=== PATIENT | female | born 1995 | race Caucasian/White ===

== ENCOUNTER 2018-08-25 10:24 | Emergency (ER) | payer OTHER ==
[~2018-08-25] VITALS: Ht 167.6 cm; Wt 59.1 kg
[2018-08-25 11:09] LABS: BASO % 0 % (0-3); EOS % 0 % (0-3); HEMATOCRIT 38.3 % (36.0-47.0); HEMOGLOBIN 13.1 g/dL (12.0-15.5); LYMPH # 1.7 x10^3/uL (1.0-4.8); LYMPH % 22 % (24-48); MEAN CORPUSCULAR HEMOGLOBIN 30 pg (25-35); MEAN CORPUSCULAR HGB CONC 34 g/dL (31-37); MEAN CORPUSCULAR VOLUME 89 fL (79-100); MONO # 0.4 x10^3/uL (0.0-1.1); MONO % 5 % (0-9); NEUT # 5.7 x10^3uL (1.8-7.7); NEUT % 73 % (31-73); PLATELET COUNT 217 x10^3/uL (140-400); RED CELL DISTRIBUTION WIDTH 12.9 % (11.5-14.5); WHITE BLOOD COUNT 7.9 x10^3/uL (4.0-11.0)
[2018-08-25 11:27] VITALS: BP 131/83
--- NOTE | 2018-08-25 12:44 | PHYS DOC ---
Past History Past Medical History: No Pertinent History Past Surgical History: Smoking: Non-smoker Alcohol Use: None Drug Use: None Adult General Chief Complaint Chief Complaint: VAGINAL BLEEDING HPI HPI Patient is a 23 year old female who presents with complaining of vaginal bleeding during . Patient is A1 at 14 weeks of gestation with LMP of May 15, 2018 with complaining of small amount of vaginal bleeding after intercourse this morning abdominal pain, nausea and vomiting, fever and chills, urinary symptom. Patient denies history of vaginal bleeding during her . Patient moved from [place] to this area and has appointment with new COLLECTION SYSTEMS ADMINISTRATOR on September 09 care. Patient had ultrasound in [place] several weeks ago with intrauterine gestational sac. She does not know about her blood type. Review of Systems Review of Systems Constitutional: Denies fever or chills [] Eyes: Denies change in visual acuity, redness, or eye pain [] HENT: Denies nasal congestion or sore throat [] Respiratory: Denies cough or shortness of breath [] Cardiovascular: No additional information not addressed in HPI [] GI: Denies abdominal pain, nausea, vomiting, bloody stools or diarrhea [] : Denies dysuria or hematuria [] Musculoskeletal: Denies back pain or joint pain [] Integument: Denies rash or skin lesions [] Neurologic: Denies headache, focal weakness or sensory changes [] Endocrine: Denies polyuria or polydipsia [] All other systems were reviewed and found to be within normal limits, except as documented in this note. Allergies Allergies Allergies Coded Allergies Type Severity Reaction Last Updated Verified No Known Drug Allergies 08/25/18 No Physical Exam Physical Exam Constitutional: Well developed, well nourished, no acute distress, non-toxic appearance. [] HENT: Normocephalic, atraumatic. [] Eyes: PERRLA, EOMI, conjunctiva normal, no discharge. [] Neck: Normal range of motion, no tenderness, supple, no stridor. [] Cardiovascular:Heart rate regular rhythm, no murmur [] Lungs & Thorax: Bilateral breath sounds clear to auscultation [] Abdomen: Bowel sounds normal, soft, no tenderness, no masses, no pulsatile masses. 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 [] Back: No tenderness, no CVA tenderness. [] Extremities: No tenderness, no cyanosis, no clubbing, ROM intact, no edema. [] Neurologic: Alert and oriented X 3, normal motor function, normal sensory function, no focal deficits noted. [] Psychologic: Affect normal, judgement normal, mood normal. [] Current Patient Data Vital Signs Vital Signs Date Time Temp Pulse Resp B/P (MAP) Pulse Ox O2 Delivery O2 Flow Rate FiO2 08/25/18 11:12 20 98 Room Air 08/25/18 10:24 98.4 83 Lab Results Laboratory Tests Test 08/25/18 10:35 White Blood Count 7.9 x10^3/uL (4.0-11.0) Red Blood Count 4.30 x10^6/uL (3.50-5.40) Hemoglobin 13.1 g/dL (12.0-15.5) Hematocrit 38.3 % (36.0-47.0) Mean Corpuscular Volume 89 fL (79-100) Mean Corpuscular Hemoglobin 30 pg (25-35) Mean Corpuscular Hemoglobin Concent 34 g/dL (31-37) Red Cell Distribution Width 12.9 % (11.5-14.5) Platelet Count 217 x10^3/uL (140-400) Neutrophils (%) (Auto) 73 % (31-73) Lymphocytes (%) (Auto) 22 % (24-48) L Monocytes (%) (Auto) 5 % (0-9) Eosinophils (%) (Auto) 0 % (0-3) Basophils (%) (Auto) 0 % (0-3) Neutrophils # (Auto) 5.7 x10^3uL (1.8-7.7) Lymphocytes # (Auto) 1.7 x10^3/uL (1.0-4.8) Monocytes # (Auto) 0.4 x10^3/uL (0.0-1.1) Eosinophils # (Auto) 0.0 x10^3/uL (0.0-0.7) Basophils # (Auto) 0.0 x10^3/uL (0.0-0.2) Maternal Serum HCG Beta Subunit 5591 mIU/mL (0-6) H EKG EKG [] Radiology/Procedures Radiology/Procedures [address] [address] IMAGING REPORT Signed PATIENT: BIJU NEWTON ACCOUNT: [id number] : 1995 LOCATION: ER AGE: 23 SEX: F EXAM STATUS: REG ER ORD. PHYSICIAN: RAFIA PARIS MD REASON: vaginal bleeding PROCEDURE: OB > 14 WKS W/TV Obstetrical ultrasound HISTORY: Vaginal bleeding for one day. Low back pain for one day. with estimated clinical age of 14 weeks 4 days. FINDINGS: Uterus measures 9.4 x 3.4 x 5.9 cm. Gestational sac identified with a pole. [place] rump length measurement is consistent with a age of 10 weeks 5 days. Despite careful observation, heart tones cannot be detected. Maternal ovaries are not visualized. IMPRESSION: Intrauterine fetus identified with crown-rump length measurements corresponding with 10 weeks 5 days. However, heart tones cannot be detected despite careful observation. Findings are therefore concerning for failed or demise. Correlate clinically and with quantitative beta hCG values. Electronically signed by: Skyler Babb MD (08/25/2018 12:58 PM) [facility] DICTATED AND SIGNED BY: SKYLER BABB MD DATE: 08/25/18 1257 CC: RAFIA PARIS MD; PCP,NO ~ Course & Med Decision Making Course & Med Decision Making Pertinent Labs and Imaging studies reviewed. (See chart for details) Evaluation of patient in ER showed 23-year-old male patient with vaginal bleeding at 14 weeks of gestation. Patient had blood type of A+ with a stable vital signs and hemoglobin. OB ultrasound did not show total heart rate with concern for demise. Patient's on-call COLLECTION SYSTEMS ADMINISTRATOR Dr Cho was consulted at 1306 and recommended to discharge patient from our care and patient following up with him today at [facility] for D&C. Verbal report was given to Dr. Olaf BONNER on-call at [facility] at 1319. Patient discharged at stable condition and recommended to go to [facility] without eating or drinking anything. Dragon Disclaimer Dragon Disclaimer This electronic medical record was generated, in whole or in part, using a voice recognition dictation system. Departure Departure: Impression: Primary Impression: demise before 20 weeks with retention of fetus Disposition: HOME, SELF-CARE (at 1321 to [facility]) Condition: STABLE Referrals: PCP,NO (PCP) Patient Instructions: Intrauterine Demise Additional Instructions: Follow-up with [facility] emergency room now for D&C by Dr. Cho Do not eat or drink anything RAFIA PARIS MD Aug 25, 2018 12:44
--- NOTE | 2018-08-25 13:03 | RAD ---
Obstetrical ultrasound HISTORY: Vaginal bleeding for one day. Low back pain for one day. with estimated clinical age of 14 weeks 4 days. FINDINGS: Uterus measures 9.4 x 3.4 x 5.9 cm. Gestational sac identified with a pole. [place] rump length measurement is consistent with a age of 10 weeks 5 days. Despite careful observation, heart tones cannot be detected. Maternal ovaries are not visualized. IMPRESSION: Intrauterine fetus identified with crown-rump length measurements corresponding with 10 weeks 5 days. However, heart tones cannot be detected despite careful observation. Findings are therefore concerning for failed or demise. Correlate clinically and with quantitative beta hCG values. Electronically signed by: Skyler Babb MD (08/25/2018 12:58 PM) [facility]
== END 2018-08-25 13:45 | disposition home or self-care (01) ==
LOC: ER 10:24
DX: O36.4XX0 Maternal care for intrauterine death, not applicable or unspecified (principal); Z3A.10 10 weeks gestation of pregnancy
CPT/HCPCS: 36415; 76805; 76817; 84702; 85025; 86900; 86901; 99284-25

== ENCOUNTER 2018-11-16 08:33 | Emergency (ER) | payer OTHER ==
[~2018-11-16] VITALS: Ht 167.6 cm; Wt 55.8 kg
[2018-11-16 08:37] VITALS: BP 106/57
[2018-11-16] MEDS ORDERED: ONDANSETRON ODT 4 MG TAB.RAPDIS PO ONE (09:30)
--- NOTE | 2018-11-16 09:37 | PHYS DOC ---
Past History Past Medical History: No Pertinent History Past Surgical History: Smoking: Non-smoker Alcohol Use: None Drug Use: None Adult General Chief Complaint Chief Complaint: LACERATION/AVULSION HPI HPI 23-year-old female presents with left little finger laceration. The patient was using a knife when she started with the cutting board the knife slipped and lacerated her left little finger. It was a significant cut immediately started to bleed. She is concerned she may need sutures so she came to the emergency room. She denies any other injuries. Her last tetanus vaccine was 2 years ago. Review of Systems Review of Systems Constitutional: Denies fever or chills [] Eyes: Denies change in visual acuity, redness, or eye pain [] HENT: Denies nasal congestion or sore throat [] Respiratory: Denies cough or shortness of breath [] Cardiovascular: No additional information not addressed in HPI [] GI: Denies abdominal pain, nausea, vomiting, bloody stools or diarrhea [] : Denies dysuria or hematuria [] Musculoskeletal: Denies back pain or joint pain [] Integument: Laceration of the left little finger[] Neurologic: Denies headache, focal weakness or sensory changes [] Endocrine: Denies polyuria or polydipsia [] All other systems were reviewed and found to be within normal limits, except as documented in this note. Current Medications Current Medications Current Medications Medications (Trade) Dose Ordered Sig/P[place]on Start Time Stop Time Status Last Admin Dose Admin Ondansetron HCl (Zofran Odt) 4 mg 1X ONCE 11/16/18 09:30 11/16/18 09:31 DC 11/16/18 09:24 4 MG Allergies Allergies Allergies Coded Allergies Type Severity Reaction Last Updated Verified No Known Drug Allergies 08/25/18 No Physical Exam Physical Exam Constitutional: Well developed, well nourished, no acute distress, non-toxic appearance. [] HENT: Normocephalic, atraumatic, bilateral external ears normal, oropharynx moist, no oral exudates, nose normal. [] Eyes: PERRLA, EOMI, conjunctiva normal, no discharge. [] Neck: Normal range of motion, no tenderness, supple, no stridor. [] Cardiovascular:Heart rate regular rhythm, no murmur [] Lungs & Thorax: Bilateral breath sounds clear to auscultation [] Abdomen: Bowel sounds normal, soft, no tenderness, no masses, no pulsatile masses. [] Skin: One centimeter semicircular laceration of the left little finger volar side.[] Back: No tenderness, no CVA tenderness. [] Extremities: No tenderness, no cyanosis, no clubbing, ROM intact, no edema. [] Neurologic: Alert and oriented X 3, normal motor function, normal sensory function, no focal deficits noted. [] Psychologic: Affect normal, judgement normal, mood normal. [] Current Patient Data Vital Signs Vital Signs Date Time Temp Pulse Resp B/P (MAP) Pulse Ox O2 Delivery O2 Flow Rate FiO2 11/16/18 08:37 97.9 55 16 99 Room Air EKG EKG [] Radiology/Procedures Radiology/Procedures [] Course & Med Decision Making Course & Med Decision Making Pertinent Labs and Imaging studies reviewed. (See chart for details) The patient's laceration was a near avulsion of the skin. This flap is highly unlikely to survive. I did Dermabond down the edges of the flap for protection of the underlying bed. He repair note for more details. The patient was nauseous and she was given 4 mg of Zofran ODT. She is stable for discharge at this time. [] Dragon Disclaimer Dragon Disclaimer This electronic medical record was generated, in whole or in part, using a voice recognition dictation system. Laceration Repair Lac Repair Indication: []Semicircular laceration of the left little finger Procedure: Verbal consent was obtained to attempt to repair this laceration if indicated. I used 1% lidocaine without epinephrine to numb the area. Once anesthesia was achieved, more thorough irrigation of the area was performed with saline under pressure. No foreign bodies were found. The flap was unlikely to be viable, but would provide protection for the wound. I applied Dermabond to the edges of the wound to help keep it in place. Bleeding was controlled. A pressure dressing was applied. Total repaired wound length: 1 Centimeter. Other Items: None The patient tolerated the procedure well. Complications: Nausea, but no vomiting. Departure Departure: Impression: Primary Impression: Laceration of left little finger Disposition: HOME, SELF-CARE Condition: IMPROVED Referrals: PCP,NO (PCP) Patient Instructions: Fingertip Laceration Problem Qualifiers Primary Impression: Laceration of left little finger Encounter type: initial encounter Damage to nail status: without damage Foreign body presence: without foreign body Qualified Codes: S61.217A - Laceration without foreign body of left little finger without damage to nail, initial encounter VANITA DORADO DO Nov 16, 2018 09:37
== END 2018-11-16 09:43 | disposition home or self-care (01) ==
LOC: ER 08:33
DX: S61.217A Laceration without foreign body of left little finger without damage to nail, initial encounter (principal); W26.0XXA Contact with knife, initial encounter; Y93.89 Activity, other specified; Y92.89 Other specified places as the place of occurrence of the external cause; Y99.8 Other external cause status
CPT/HCPCS: 12001; 99283; Q0162

== ENCOUNTER 2021-03-01 12:11 | Emergency (ER) | payer OTHER ==
[~2021-03-01] VITALS: Ht 167.6 cm; Wt 55.6 kg
[2021-03-01 12:20] VITALS: BP 130/79
--- NOTE | 2021-03-01 12:43 | PHYS DOC ---
Past History Past Medical History: No Pertinent History Past Surgical History: Smoking: Non-smoker Alcohol Use: None Drug Use: None General Adult EDM: Chief Complaint: COUGH HPI: HPI: Patient is a 25-year-old female being seen in the ER today for nonproductive cough, headache, high pain, body aches, loss of smell that started 4 days ago. Patient rates her pain 6 out of 10. She took Advil last night but no treatment today. Patient is not vaccinated for COVID-19. 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 Patient states that her father is a featherer and her that she need to be tested for meningitis because she has got a headache and body aches. Patient denies nasal congestion drainage, neck stiffness, shortness of breath, sore throat, loss of taste, fevers. Review of Systems: Review of Systems: 14 body systems of the review of systems have been reviewed. See HPI for pe rtinent positive and negative responses, otherwise all other systems are negative, nonpertinent or noncontributory Allergies: Allergies: Allergies Coded Allergies Type Severity Reaction Last Updated Verified No Known Drug Allergies 08/25/18 No Physical Exam: PE: Constitutional: Well developed, well nourished, no acute distress, non-toxic appearance. [] HENT: Normocephalic, atraumatic, bilateral external ears normal, oropharynx moist with mild erythema, postnasal drainage, no oral exudates, nose normal, no pain with palpation of sinuses. [] Eyes: PERRLA, EOMI, conjunctiva normal, no discharge. [] Neck: Normal range of motion, no tenderness, supple, no stridor, no cervical lymphadenopathy. [] Cardiovascular:Heart rate regular rhythm, no murmur [] Lungs & Thorax: Bilateral breath sounds clear to auscultation [] Abdomen: Bowel sounds normal, soft, no tenderness, no masses, no pulsatile masses. [] Skin: Warm, dry, no erythema, no rash. [] Back: No tenderness, normal range of motion [] Extremities: No tenderness, no cyanosis, no clubbing, ROM intact, no edema. [] Neurologic: Alert and oriented X 3, normal motor function, normal sensory function, no focal deficits noted. [] Psychologic: Affect normal, judgement normal, mood normal. [] Current Patient Data: Labs: Laboratory Tests Test 03/01/21 13:05 White Blood Count 2.1 x10^3/uL Red Blood Count 4.25 x10^6/uL Hemoglobin 12.1 g/dL Hematocrit 37.2 % Mean Corpuscular Volume 88 fL Mean Corpuscular Hemoglobin 28 pg Mean Corpuscular Hemoglobin Concent 32 g/dL Red Cell Distribution Width 14.3 % Platelet Count 154 x10^3/uL Neutrophils (%) (Auto) 41 % Lymphocytes (%) (Auto) 46 % Monocytes (%) (Auto) 12 % Eosinophils (%) (Auto) 1 % Basophils (%) (Auto) 1 % Neutrophils # (Auto) 0.9 x10^3uL Lymphocytes # (Auto) 1.0 x10^3/uL Monocytes # (Auto) 0.2 x10^3/uL Eosinophils # (Auto) 0.0 x10^3/uL Basophils # (Auto) 0.0 x10^3/uL Platelet Estimate Pending Sodium Level 142 mmol/L Potassium Level 4.1 mmol/L Chloride Level 106 mmol/L Carbon Dioxide Level 26 mmol/L Anion Gap 10 Blood Urea Nitrogen 10 mg/dL Creatinine 0.8 mg/dL Estimated GFR (Cockcroft-Gault) 88.9 Glucose Level 99 mg/dL Calcium Level 8.3 mg/dL EKG: EKG: [] Radiology/Procedures: Radiology/Procedures: PROCEDURE: CHEST PA & LATERAL EXAM: Chest, 2 views. HISTORY: Cough. COMPARISON: None. FINDINGS: 2 views of the chest are obtained. There is no infiltrate, pleural effusion or pneumothorax. The heart is normal in size. IMPRESSION: No acute pulmonary finding. 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 Risk Scores: Score 0 - 3: 2.5% MACE over next 6 weeks - Discharge Home Score 4 - 6: 20.3% MACE over next 6 weeks - Admit for Clinical Observation Score 7 - 10: 72.7% MACE over next 6 weeks - Early Invasive Strategies Course & Med Decision Making: Course & Med Decision Making Pertinent Labs and Imaging studies reviewed. (See chart for details) Patient is a 25-year-old female being seen in the ER today for nonproductive cough, headache, eye pain, loss of smell, body aches. Patient reports that she told her father who is a featherer that she has a headache and body aches and he told her to be tested for meningitis. Patient has no meningeal symptoms. No fever, neck stiffness, altered mental status, nausea, vomiting, focal neuro deficit, nuchal rigidity. It is likely that patient has COVID-19 viral illness. Patient tested for COVID-19 and will receive the results of that testing in 1 to 2 days. Blood work also obtained, this was mostly unremarkable with findings consistent with a viral illness. Patient had a chest x-ray performed and that was negative for any acute findings. I discussed with patient the possibility of a COVID-19 viral illness. Self-isolation was discussed and patient referred to CDC guidelines. I discussed with patient all findings and diagnostic testing as well as the need to follow-up with PCP for further evaluation and treatment or return to the ER if any new or worsening symptoms. Strict return precautions were also discussed at length. Patient voiced understanding and agreement with the plan. Patient is hemodynamically stable at the time of disposition. Gurdeep Disclaimer: Gurdeep Disclaimer: This electronic medical record was generated, in whole or in part, using a voice recognition dictation system. Departure Departure: Impression: Primary Impression: Viral illness Disposition: HOME / SELF CARE / HOMELESS Condition: GOOD Referrals: PCP,NO (PCP) Patient Instructions: Cough, Adult Additional Instructions: You were seen in the ER today for headache, eye pain, body aches, and cough. Your physical exam was reassuring. Your chest x-ray was normal. Your blood work was unremarkable but did show indication of a viral illness. You can take Tylenol or ibuprofen for your headache. We tested you for COVID-19 but this test does not come back for 1 to 2 days. In the meantime you will need to quarantine yourself at home away from all other individuals, especially those who are elderly or have any other chronic health issues or any one with immunocompromise status. You should return to the ER if you develop worsening cough, shortness of breath, chest pain, or any other new or concerning symptoms. Alternate Tylenol and ibuprofen as needed for your body aches and pain. If your test does come back positive we will need to quarantine yourself for 10 days until symptom free. You should make sure to drink plenty of fluids and get plenty of rest. DAYRON BLACK APRN Mar 01, 2021 12:43
--- NOTE | 2021-03-01 13:03 | RAD ---
EXAM: Chest, 2 views. HISTORY: Cough. COMPARISON: None. FINDINGS: 2 views of the chest are obtained. There is no infiltrate, pleural effusion or pneumothorax . The heart is normal in size. IMPRESSION: No acute pulmonary finding. Electronically signed by: Ruthy Sanchez MD (03/01/2021 1:01 PM) [id number]
[2021-03-01 13:32] LABS: BASO % 1 % (0-3); EOS % 1 % (0-3); HEMATOCRIT 37.2 % (36.0-47.0); HEMOGLOBIN 12.1 g/dL (12.0-15.5); LYMPH % 46 % (24-48); MEAN CORPUSCULAR HEMOGLOBIN 28 pg (25-35); MEAN CORPUSCULAR HGB CONC 32 g/dL (31-37); MEAN CORPUSCULAR VOLUME 88 fL (79-100); MONO # 0.2 x10^3/uL (0.0-1.1); MONO % 12 % (0-9); NEUT # 0.9 x10^3uL (1.8-7.7); NEUT % 41 % (31-73); PLATELET COUNT 154 x10^3/uL (140-400); RED BLOOD COUNT 4.25 x10^6/uL (3.50-5.40); RED CELL DISTRIBUTION WIDTH 14.3 % (11.5-14.5); WHITE BLOOD COUNT 2.1 x10^3/uL (4.0-11.0)
[2021-03-01 13:43] LABS: CALCIUM 8.3 mg/dL (8.5-10.1); CREATININE 0.8 mg/dL (0.6-1.0); GFR 88.9; POTASSIUM 4.1 mmol/L (3.5-5.1)
[2021-03-01 14:18] LABS: % BANDS 9 % (0-9); % EOS 2 % (0-5); % LYMPHS 50 % (24-48); % METAS 1 % (0-0); % MONOS 12 % (0-10); % MYELOS 1 % (0-0); % SEGS 25 % (35-66); PLT ESTIMATE ADEQUATE (ADEQUATE)
== END 2021-03-01 14:27 | disposition home or self-care (01) ==
LOC: ER 12:11
DX: U07.1 COVID-19 (principal); B34.9 Viral infection, unspecified
CPT/HCPCS: 71046; 80048; 85007; 85025; 99284; C9803; U0003

== ENCOUNTER 2021-07-04 14:06 | Emergency (ER) | payer OTHER ==
[~2021-07-04] VITALS: Ht 167.6 cm; Wt 55.6 kg
[2021-07-04 14:22] VITALS: BP 126/68
--- NOTE | 2021-07-04 14:26 | PHYS DOC ---
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 Patient states she is right-handed. (LYUDMILA CORNEJO ELECTRONIC BENCH TECHNICIAN) Review of Systems Review of Systems Constitutional: Denies fever or chills Musculoskeletal: Reports right hand intermittent Integument: Denies rash or skin lesions [] Neurologic: Denies headache, focal weakness or sensory changes [] All other systems were reviewed and found to be within normal limits, except as documented in this note. (LYUDMILA CORNEJO ELECTRONIC BENCH TECHNICIAN) Allergies Allergies Allergies Coded Allergies Type Severity Reaction Last Updated Verified No Known Drug Allergies 08/25/18 No (LYUDMILA CORNEJO APRN) Physical Exam Physical Exam Constitutional: Well developed, well nourished, no acute distress, non-toxic appearance. [] Skin: Warm, dry, no erythema, no rash. [] Back: No tenderness, no CVA tenderness. [] Extremities: Right hand with no obvious deformity, bruising noted on the right ring finger proximal phalanx with tenderness over the region. Full range of motion to the right hand and fingers, adequate radial, medial, ulnar sensation to the right fingers. +2 right radial pulse. Cap refill less than 2 seconds to right fingers Neurologic: Alert and oriented X 3, normal motor function, normal sensory function, no focal deficits noted. [] Psychologic: Affect normal, judgement normal, mood normal. [] (LYUDMILA CORNEJO ELECTRONIC BENCH TECHNICIAN) EKG EKG [] (LYUDMILA CORNEJO ELECTRONIC BENCH TECHNICIAN) Radiology/Procedures Radiology/Procedures []PROCEDURE: HAND RIGHT 3V Right hand 3 views. HISTORY: Smashed in car door, pain 3 views were taken of the right hand. There is not evidence of an acute fracture or osseous abnormality. IMPRESSION: 1. No acute fracture noted in the right hand. Electronically signed by: Magnus Thomas MD (07/04/2021 2:50 PM) [facility] DICTATED AND SIGNED BY: MAGNUS THOMAS MD DATE: 07/04/21 1449 CC: LYUDMILA CORNEJO APRN; PCP,NO ~MTH0 0 (LYUDMILA CORNEJO APRN) Heart Score C/O Chest Pain: N/A Risk Factors: Risk Factors: DM, Current or recent (<one month) smoker, HTN, HLP, family history of CAD, obesity. Risk Scores: Risk Factors: DM, Current or recent (<one month) smoker, HTN, HLP, family history of CAD, obesity. (LYUDMILA CORNEJO APRN) Course & Med Decision Making Course & Med Decision Making Pertinent Labs and Imaging studies reviewed. (See chart for details) This is a 26-year-old female patient presenting to the ED today complaining of right hand injury, she accidentally smashed her right hand in a car door. Right hand x-rays interpreted by radiologist as negative for any acute findings. Discharge to home. Follow-up with Ortho in 1 week. Ice elevation encouraged. OTC pain relievers (LYUDMILA CORNEJO APRN) Course & Med Decision Making I was the Attending physician on the above date of service of this patient. This patient was evaluated, examined, treated, and dispositioned from the emergency department by the mid-level practitioner. Although I was working at the time , no assistance was requested. Electronically signed, Walter Polo DO (WALTER POLO DO) Gurdeep Disclaimer Gurdeep Disclaimer This electronic medical record was generated, in whole or in part, using a voice recognition dictation system. (LYUDMILA CORNEJO APRN) Departure Departure: Impression: Primary Impression: Contusion of right hand Disposition: HOME / SELF CARE / HOMELESS Condition: STABLE Referrals: PCP,NO (PCP) TIESHA AGUIRRE Jr. DO follow up in 1-2 weeks Patient Instructions: Contusion, [id number] Additional Instructions: You were seen for right had injury, your right hand x-rays are negative for any acute findings. Please try to ice and elevate the extremity. Take [id number] pain relievers as needed. Please follow-up with your own primary care doctor or the provided orthopedic doctor in 1 week if pain persists Problem Qualifiers Primary Impression: Contusion of right hand Encounter type: initial encounter Qualified Codes: S60.221A - Contusion of right hand, initial encounter LYUDMILA CORNEJO APRN Jul 04, 2021 14:26 WALTER POLO DO Jul 06, 2021 06:57
--- NOTE | 2021-07-04 14:53 | RAD ---
Right hand 3 views. HISTORY: Smashed in car door, pain 3 views were taken of the right hand. There is not evidence of an acute fracture or osseous abnormali ty. IMPRESSION: 1. No acute fracture noted in the right hand. Electronically signed by: Magnus Thomas MD (07/04/2021 2:50 PM) [facility]
== END 2021-07-04 15:34 | disposition home or self-care (01) ==
LOC: ER 14:06
DX: S60.041A Contusion of right ring finger without damage to nail, initial encounter (principal); W23.0XXA Caught, crushed, jammed, or pinched between moving objects, initial encounter; Y93.89 Activity, other specified; Y92.89 Other specified places as the place of occurrence of the external cause; Y99.8 Other external cause status
CPT/HCPCS: 73130; 99283

== ENCOUNTER 2021-08-13 08:36 | Emergency (ER) | payer OTHER ==
[~2021-08-13] VITALS: Ht 167.6 cm; Wt 54.5 kg
[2021-08-13] MEDS ORDERED: ONDANSETRON PF 4 MG/2 ML VIAL. IVP ONE (09:30)
[2021-08-13] MEDS ORDERED: IV NORMAL SALINE 1,000ML 1,000 ML IV ONE ×3 (09:30→12:30)
[2021-08-13 10:47] LABS: BASO % 0 % (0-3); EOS % 0 % (0-3); HEMOGLOBIN 12.8 g/dL (12.0-15.5); LYMPH # 0.7 x10^3/uL (1.0-4.8); LYMPH % 6 % (24-48); MEAN CORPUSCULAR HEMOGLOBIN 29 pg (25-35); MEAN CORPUSCULAR HGB CONC 33 g/dL (31-37); MEAN CORPUSCULAR VOLUME 89 fL (79-100); MONO # 0.7 x10^3/uL (0.0-1.1); MONO % 6 % (0-9); NEUT # 10.1 x10^3uL (1.8-7.7); NEUT % 88 % (31-73); PLATELET COUNT 208 x10^3/uL (140-400); RED BLOOD COUNT 4.38 x10^6/uL (3.50-5.40); RED CELL DISTRIBUTION WIDTH 13.2 % (11.5-14.5); WHITE BLOOD COUNT 11.5 x10^3/uL (4.0-11.0)
[2021-08-13 10:58] LABS: CREATININE 0.7 mg/dL (0.6-1.0); GFR 102.8; POTASSIUM 3.7 mmol/L (3.5-5.1)
[2021-08-13 11:01] LABS: BILIRUBIN,URINE NEG (NEG); CLARITY,URINE HAZY; COLOR,URINE AMBER; GLUCOSE,URINE NEG (NEG); NITRITE,URINE NEG (NEG)
[2021-08-13 11:02] LABS: BACTERIA,URINE MOD /HPF (0-FEW); HYALINE CASTS, URINE OCC /HPF; SQUAMOUS EPITHELIAL CELL,UR MOD /LPF
[2021-08-13 11:03] LABS: ALBUMIN/GLOBULIN RATIO 1.1 (1.0-1.7); TOTAL BILIRUBIN 0.8 mg/dL (0.2-1.0); TOTAL PROTEIN 7.5 g/dL (6.4-8.2)
--- NOTE | 2021-08-13 12:07 | RAD ---
US OB <14 WKS +TV Clinical Indication: Reason: LOW ABD PAIN IN PREG / Spl. Instructions: / History: Comparison: Obstetric ultrasound, August 25, 2018. TECHNIQUE: Real-time ultrasound imaging of the pelvis using transabdominal and transvaginal window is performed. Findings: Uterus measures 8.9 x 5.5 x 5.3 cm. There is moderate cul-de-sac free fluid. Fluid appears complicated. Outlined by free fluid dependentl y in the cul-de-sac there is a round hyperechogenicity measuring up to 1 cm, nonspecific. Color Doppl er interrogation is negative. The maternal ovaries are not visualized perhaps due to overlying bowel gas. The cervix length is adequate, the cervix is closed. There is intrauterine gestational sac with normal shape. There is suggestion of a tiny perigestationa l hemorrhage. In the gestational sac a yolk sac and pole are identified. Mean gestational sac diameter 1.9 cm, 7 weeks and 1 day. Mignon-rump length 1.1 cm, 6 weeks and 6 days. Overall estimated sonographic gestational age 7 weeks and 0 days. EDC ultrasound is April 01, 2022. Estimated heart rate is 169 bpm. IMPRESSION: 1. Single live intrauterine gestation, estimated sonographic gestational age is 7 weeks and 0 days. 2. There is moderate cul-de-sac free fluid. The fluid appears complicated. There is a small round hy perechogenicity partially outlined by free fluid. Finding is nonspecific. Recommend short-term follow -up ultrasound. 3. The maternal ovaries are not identified probably due to overlying bowel gas. Electronically signed by: Toni Rosales MD (08/13/2021 12:04 PM) [id number]
--- NOTE | 2021-08-13 13:06 | PHYS DOC ---
Past History Past Medical History: No Pertinent History Past Surgical History: , Other Additional Past Surgical Histo: D&C X 2 Smoking: Non-smoker Alcohol Use: None Drug Use: None General Adult EDM: Chief Complaint: ABDOMINAL PAIN IN HPI: HPI: Patient is a 26-year-old female G6, P1 at approximately 7 weeks gestational age with generalized abdominal pain for 3 days. Patient states is worsening. Has some nausea but no vomiting. Denies any diarrhea or constipation. No urinary complaints. Has had scant amount of yellowish vaginal discharge. Review of Systems: Review of Systems: All other systems within normal limits except for as noted in the HPI Current Medications: Current Meds: Current Medications Medications (Trade) Dose Ordered Sig/Preston Start Time Stop Time Status Last Admin Dose Admin Fentanyl Citrate (Fentanyl 2ml Vial) 75 mcg 1X ONCE 08/13/21 12:45 08/13/21 12:52 DC 08/13/21 12:57 75 MCG Ondansetron HCl (Zofran) 4 mg 1X ONCE 08/13/21 09:30 08/13/21 09:31 DC 08/13/21 10:27 4 MG Sodium Chloride 1,000 ml @ 1,000 mls/hr 1X ONCE 08/13/21 12:30 08/13/21 13:29 08/13/21 12:32 1,000 MLS/HR Allergies: Allergies: Allergies Coded Allergies Type Severity Reaction Last Updated Verified No Known Drug Allergies 08/13/21 No Physical Exam: PE: Constitutional: Well developed, well nourished, no acute distress, non-toxic appearance. [] HENT: Normocephalic, atraumatic, bilateral external ears normal, nose normal. [] Eyes: PERRLA, conjunctiva normal, no discharge. [] Neck: No rigidity, supple, no stridor. [] Cardiovascular: Regular rate and rhythm, brisk cap refill [] Lungs & Thorax: Non labored symmetric respirations, no tachypnea or respiratory distress [] Abdomen: Soft, nondistended, generalized abdominal pain with guarding Skin: Warm, dry, no erythema, no rash. [] Back: Unremarkable Extremities: No deformities, range of motion grossly intact, no lower extremity edema [] Neurologic: Alert and oriented X 3, no focal deficits noted. [] Psychologic: Affect normal, judgement normal, mood normal. [] Current Patient Data: Labs: Laboratory Tests Test 08/13/21 10:23 08/13/21 10:24 White Blood Count 11.5 x10^3/uL (4.0-11.0) H Red Blood Count 4.38 x10^6/uL (3.50-5.40) Hemoglobin 12.8 g/dL (12.0-15.5) Hematocrit 39.0 % (36.0-47.0) Mean Corpuscular Volume 89 fL (79-100) Mean Corpuscular Hemoglobin 29 pg (25-35) Mean Corpuscular Hemoglobin Concent 33 g/dL (31-37) Red Cell Distribution Width 13.2 % (11.5-14.5) Platelet Count 208 x10^3/uL (140-400) Neutrophils (%) (Auto) 88 % (31-73) H Lymphocytes (%) (Auto) 6 % (24-48) L Monocytes (%) (Auto) 6 % (0-9) Eosinophils (%) (Auto) 0 % (0-3) Basophils (%) (Auto) 0 % (0-3) Neutrophils # (Auto) 10.1 x10^3uL (1.8-7.7) H Lymphocytes # (Auto) 0.7 x10^3/uL (1.0-4.8) L Monocytes # (Auto) 0.7 x10^3/uL (0.0-1.1) Eosinophils # (Auto) 0.0 x10^3/uL (0.0-0.7) Basophils # (Auto) 0.0 x10^3/uL (0.0-0.2) Maternal Serum HCG Beta Subunit 98823 mIU/mL (0-6) H Sodium Level 138 mmol/L (136-145) Potassium Level 3.7 mmol/L (3.5-5.1) Chloride Level 100 mmol/L (98-107) Carbon Dioxide Level 24 mmol/L (21-32) Anion Gap 14 (6-14) Blood Urea Nitrogen 14 mg/dL (7-20) Creatinine 0.7 mg/dL (0.6-1.0) Estimated GFR (Cockcroft-Gault) 102.8 BUN/Creatinine Ratio 20 (6-20) Glucose Level 126 mg/dL (70-99) H Calcium Level 9.0 mg/dL (8.5-10.1) Total Bilirubin 0.8 mg/dL (0.2-1.0) Aspartate Amino Transferase (AST) 16 U/L (15-37) Alanine Aminotransferase (ALT) 20 U/L (14-59) Alkaline Phosphatase 60 U/L (46-116) Total Protein 7.5 g/dL (6.4-8.2) Albumin 4.0 g/dL (3.4-5.0) Albumin/Globulin Ratio 1.1 (1.0-1.7) Lipase 106 U/L (73-393) Urine Collection Type Void Urine Color Yohana Urine Clarity Hazy Urine pH 7.0 Urine Specific [place] 1.020 Urine Protein Trace (NEG-TRACE) Urine Glucose (UA) Neg mg/dL (NEG) Urine Ketones (Stick) >=160 mg/dL (NEG) Urine Blood Trace (NEG) Urine Nitrite Neg (NEG) Urine Bilirubin Neg (NEG) Urine Urobilinogen Dipstick 2.0 mg/dL (0.2 mg/dL) Urine Leukocyte Esterase Neg (NEG) Urine RBC 3-5 /HPF (0-2) Urine WBC 1-4 /HPF (0-4) Urine Squamous Epithelial Cells Mod /LPF Urine Bacteria Mod /HPF (0-FEW) Urine Hyaline Casts Occ /HPF Urine Mucus Marked /LPF Microbiology 08/13/21 Wet Prep - Final, Complete Vital Signs: Vital Signs Date Time Temp Pulse Resp B/P (MAP) Pulse Ox O2 Delivery O2 Flow Rate FiO2 08/13/21 12:57 18 100 Room Air 08/13/21 12:31 103 98/60 (73) 08/13/21 08:47 99.0 EKG: EKG: [] Radiology/Procedures: Radiology/Procedures: [address] [id number] IMAGING REPORT Signed PATIENT: BIJU NEWTON ACCOUNT: [id number] : 1995 LOCATION: ER AGE: 26 SEX: F EXAM STATUS: REG ER ORD. PHYSICIAN: SHARMIN LACKEY MD REASON: LOW ABD PAIN IN PREG PROCEDURE: OB <14 WKS W/TV US OB <14 WKS +TV Clinical Indication: Reason: LOW ABD PAIN IN PREG / Spl. Instructions: / History: Comparison: Obstetric ultrasound, August 25, 2018. TECHNIQUE: Real-time ultrasound imaging of the pelvis using transabdominal and transvaginal window is performed. Findings: Uterus measures 8.9 x 5.5 x 5.3 cm. There is moderate cul-de-sac free fluid. Fluid appears complicated. Outlined by free fluid dependently in the cul-de-sac there is a round hyperechogenicity measuring up to 1 cm, nonspecific. Color Doppler interrogation is negative. The maternal ovaries are not visualized perhaps due to overlying bowel gas. The cervix length is adequate, the cervix is closed. There is intrauterine gestational sac with normal shape. There is suggestion of a tiny perigestational hemorrhage. In the gestational sac a yolk sac and pole are identified. Mean gestational sac diameter 1.9 cm, 7 weeks and 1 day. [place]-rump length 1.1 cm, 6 weeks and 6 days. Overall estimated sonographic gestational age 7 weeks and 0 days. EDC ultrasound is April 01, 2022. Estimated heart rate is 169 bpm. IMPRESSION: 1. Single live intrauterine gestation, estimated sonographic gestational age is 7 weeks and 0 days. 2. There is moderate cul-de-sac free fluid. The fluid appears complicated. There is a small round hyperechogenicity partially outlined by free fluid. Finding is nonspecific. Recommend short-term follow-up ultrasound. 3. The maternal ovaries are not identified probably due to overlying bowel gas. Electronically signed by: Toni Rosales MD (08/13/2021 12:04 PM) [id number] DICTATED AND SIGNED BY: TONI ROSALES MD DATE: 08/13/21 1150 CC: SHARMIN LACKEY MD; NON,STAFF ~MTH0 0 [] Heart Score: C/O Chest Pain: No Risk Factors: Risk Factors: DM, Current or recent (<one month) smoker, HTN, HLP, family history of CAD, obesity. Risk Scores: Score 0 - 3: 2.5% MACE over next 6 weeks - Discharge Home Score 4 - 6: 20.3% MACE over next 6 weeks - Admit for Clinical Observation Score 7 - 10: 72.7% MACE over next 6 weeks - Early Invasive Strategies Course & Med Decision Making: Course & Med Decision Making Pertinent Labs and Imaging studies reviewed. (See chart for details) Moderate free fluid on visualized ovaries, concern for ectopic and cannot rule out a heterotopic . Patient's vital signs are concerning, heart rate has been 100 and blood pressure has been 90s over 50s. Consult placed to Dr. Savage who will see and admit the patient over at [place]. [] Joseon Disclaimer: Dragon Disclaimer: This electronic medical record was generated, in whole or in part, using a voice recognition dictation system. Departure Departure: Impression: Primary Impression: Abdominal pain during in first trimester Disposition: 02 SHORT TERM HOSPITAL Condition: GUARDED Referrals: NON,STAFF (PCP) SHARMIN LACKEY MD Aug 13, 2021 13:06
[2021-08-13 15:52] VITALS: BP 101/94
[2021-08-16 14:29] LABS: CHLAMYDIA PROBE Negative (Negative)
== END 2021-08-13 15:55 | disposition short-term general hospital (02) ==
LOC: ER 08:36
DX: O26.891 Other specified pregnancy related conditions, first trimester (principal); R10.84 Generalized abdominal pain; Z3A.01 Less than 8 weeks gestation of pregnancy; Z20.822 Contact with and (suspected) exposure to COVID-19; Z98.890 Other specified postprocedural states
CPT/HCPCS: 76801; 76817; 80053; 81001; 83690; 84702; 85025; 87086; 87426; 87491; 87591; 96361; 96374; 96375; 96376; 99285; C9803; J2405; J3010; J7030; Q0111; U0003